=== PATIENT | female | born 1965 | race Caucasian/White ===

== ENCOUNTER 2021-11-24 14:11 | Emergency (ER) | payer MEDICARE, SELFPAY ==
[2021-11-24 14:13] VITALS: BP 137/72; PULSE 88; RESP 16; TEMP 36.4; O2SAT 95; BMI 38.9
--- NOTE | 2021-11-24 14:32 | EX.ED.DYSGE1 ---
HPI History of Present Illness Chief Complaint: Weakness Informant: patient Narrative Narrative: Patient presents to the ED for evaluation. Patient diagnosed with home testing for Covid 10 days ago symptomatic 10 days ago with a sore throat. She is a sales agent business services. She is nonvaccinated. She states had fevers vomiting diarrhea did not lose taste or smell. Those has resolved. Sore throat has resolved. [place] ear pain on the right side yesterday. States she has been feeling fatigued was able to get out of bed today. She denies any current dyspnea. Reports therapist friend referred her to the emergency room for a chest x-ray to rule out pneumonia. See history of seasonal allergies on nasal sprays. Prior similar symptoms: No PFSH PFSH Allergy/AdvReac Type Severity Reaction Status Date / Time dextromethorphan Allergy Other Verified 11/24/21 14:16 pseudoephedrine Allergy Other Verified 11/24/21 14:16 ROS ROS ED Constitutional Constitutional ED: Denies chills, fever(s) or sweats Eyes Eyes: Reports other Details: Right ear pain ; Denies change in vision ENT ENT ED: Denies dysphagia or sore throat Cardiovascular Cardiovascular: Denies chest pain, leg edema, palpitations or racing heartbeat Respiratory/Chest Respiratory/Chest: Denies cough, dyspnea or dyspnea on exertion Gastrointestinal Gastrointestinal: Denies abdominal pain, diarrhea, nausea or vomiting Genitourinary Genitourinary ED: Denies dysuria, hematuria or urinary frequency Musculoskeletal Musculoskeletal: Denies back pain, extremity pain or neck pain Integumentary Denies rash or wounds Neurologic Neurologic: Denies headache(s), paresthesias or weakness EXAM Physical Exam Const Vital Signs: 11/24/21 14:13 Temperature 97.6 F L Temperature Source Temporal Pulse Rate 88 Respiratory Rate 16 Blood Pressure 137/72 H Blood Pressure Mean 93 Pulse Ox 95 Oxygen Delivery Method Room Air Positive well nourished and well developed General Appearance ED: well developed and NAD HEENT Reports TM's clear and moist mucous membranes HEENT Narrative: TMs normal bilaterally, left ear had some cerumen impaction however was able to visualize partially with TM which was normal. No posterior pharyngeal erythema. normocephalic and atraumatic Tympanic Membrane ED: Yes TM's clear Eyes PERRL, EOMs intact bilaterally and conjunctivae normal General Eye ED: Yes normal appearance of both eyes Neck no lymphadenopathy and supple General: Negative for tenderness Chest Wall Chest: Negative for tenderness Resp normal respiratory effort and normal air movement Effort and Inspection: symmetric chest movement; Negative for respiratory distress Cardio regular rate, regular rhythm and no murmurs Peripheral Pulses: pulses 2+ throughout GI normal to inspection, nondistended, normoactive bowel sounds and non-tender Palpation: Negative for guarding or rebound tenderness present Back/Spine no CVA tenderness and no thoracic nor lumbar tenderness Extremity normal to inspection General Extremety ED: Negative for edema or tenderness General Extremity: Negative for edema Neuro oriented x3 and no sensory deficits noted Sensorium / Orientation: awake and alert Skin no rashes or lesions noted and no wounds MDM MDM MDM Narrative Medical decision making narrative: Patient vital signs stable afebrile pulse ox 95% room air. She is in no respiratory distress. Clinically her Covid symptoms are improving except for current fatigue that is also improving. There is no signs of infections on her ears. Patient is more reassured. Discussed with patient her friend concerns for pneumonia, discussed can obtain a chest x-ray if she is concerned however management would be the same and no antibiotics due to having Covid. She understands this. She agrees without needing x-ray from the department. I discussed monitoring for respiratory symptoms anything worsens to return otherwise continue symptomatic treatment at home. Patient is being discharged under pandemic conditions under declared global, national and state disaster activation, with limited medical resources. Patient and community understands this. Results discussed in layman's terms to the patient satisfaction. All questions answered in layman's terms. Patient understands importance of follow-up care as directed. Patient has been instructed to return to the ED immediately if new symptoms, problems, or questions occur. We mutually agree with the plan of disposition. The patient understand that they may call or return with any questions or concerns at any time. Discharge Plan Triage Chief Complaint: Weakness ED Provider: Oc Lopez Dx/Rx/DC Orders Clinical Impression: COVID-19 virus infection Instructions: Coronavirus Disease 2019 (COVID-19): Caring for Yourself or Others Referrals: Sudheer Mar MD [STAFF PHYSICIAN] - 1 Week Disposition Disposition: Home, Self Care
--- NOTE | 2021-11-24 19:45 | ED.RN ---
PT RETURNS TO ED TRIAGE AT APPROXIMATELY 1515, STATES FAMILY TOLD HER TO COME BACK AND BE CHECKED IN AGAIN. PT HAD ARRIVED WITH SPOUSE EARLIER, PT DISCHARGED FROM ED BUT SPOUSE REMAINED IN ED AT THIS TIME. THIS RN TOOK PT TO TRIAGE ROOM, OBTAINED VITALS OF BP 116/63, HR 79, SPO2 96% ON ROOM AIR, RR <20. PT SITTING IN CHAIR WITH NO SIGNS OF DISTRESS, BREATHING UNLABORED. PT ADVISED OF VITALS, STATES I REALLY JUST FEEL TOO AWFUL TO DRIVE HOME, THAT'S WHY I CAME BACK IN. THIS RN OFFERED TO CHECK PT IN AGAIN, TO BE ASSESSED BY AN MD AGAIN. PT STATES SHE WOULD PREFER INSTEAD TO WAIT IN HER 'S ROOM UNTIL HE WAS DISCHARGED. PERMISSION OBTAINED FROM [employer] ARCHITECT TO LET PT STAY WITH SPOUSE. PT AMBULATED TO SPOUSE'S ROOM WITHOUT DIFFICULTY.
== END 2021-11-24 14:50 | disposition home or self-care (01) ==
PROVIDERS: Emergency Provider Emergency Medicine; PCP Family Medicine; Visit Provider Emergency Medicine
DX: U07.1 COVID-19 (principal); H61.22 Impacted cerumen, left ear
CPT/HCPCS: 99282